=== PATIENT | female | born 1960 | race Caucasian/White ===

== ENCOUNTER 2018-02-15 07:09 | Day surgery (SDC) | payer OTHER ==
[~2018-02-15] VITALS: Ht 165.1 cm; Wt 59.0 kg
[2018-02-15 07:50] VITALS: BP 109/56
[2018-02-15 12:42] VITALS: BP 111/58
== END 2018-02-15 11:35 | disposition home or self-care (01) ==
LOC: GI 07:09 → OR 08:30 → GI 08:30
PROVIDERS: Internal Medicine Gastroenterology
PROC: 0DB68ZX Excision of Stomach, Via Natural or Artificial Opening Endoscopic, Diagnostic (ICD-10-PCS; principal; 2018-02-15 08:30)
PROC: 0DB98ZX Excision of Duodenum, Via Natural or Artificial Opening Endoscopic, Diagnostic (ICD-10-PCS; 2018-02-15 08:30)
PROC: 0DBE8ZX Excision of Large Intestine, Via Natural or Artificial Opening Endoscopic, Diagnostic (ICD-10-PCS; 2018-02-15 08:30)
DX: R10.9 Unspecified abdominal pain (principal); R19.7 Diarrhea, unspecified
CPT/HCPCS: 43235; 45378; J1200; J1610; J2250; J2310; J3010; J3490